=== PATIENT | female | born 1980 | race Caucasian/White ===

== ENCOUNTER 2017-02-24 09:39 | Inpatient (IN) | payer OTHER ==
[2017-02-24 11:35] LABS: ROM Internal QC QC Line Present
[2017-02-24] MEDS ORDERED: Misoprostol TAB* 100 MCG ONE (12:54)
[2017-02-24] MEDS: Misoprostol TAB* 100 MCG PO ONE ×2 (13:00→13:01)
[2017-02-24] MEDS ORDERED: Misoprostol TAB* 100 MCG VAGINAL ONE (17:05)
[2017-02-25 01:55] LABS: Hematocrit 35 % (35-47); Hemoglobin 11.3 g/dl (12.0-16.0); Mean Corpuscular HGB Conc 33 g/dl (31-36); Mean Corpuscular Hemoglobin 27 pg (27-31); Mean Corpuscular Volume 84 fL (80-97); Mean Platelet Volume 10 um3 (7.4-10.4); Red Blood Count 4.14 10^6/ul (4.0-5.4); Red Cell Distribution Width 15 % (10.5-15); White Blood Count 18.9 10^3/ul (3.5-10.8)
[2017-02-25] MEDS ORDERED: Oxytocin in LR* 20 UNITS/1,000 ML BAG IVPB SCH (02:00)
[2017-02-25] MEDS ORDERED: OBEPIDURAL* 250 ML ONE (02:02)
[2017-02-25] MEDS ORDERED: Sodium Citrate/Citric Acid* 15 ML UDC PO PRN (02:33)
[2017-02-25] MEDS ORDERED: Phenylephrine IV* 40 MCG/ML 10 ML SYRINGE IV PUSH PRN (02:33)
[2017-02-25] MEDS ORDERED: EPHEDrine (Pressors)* 50 MG/ML VIAL IV PUSH PRN (02:33)
[2017-02-25] MEDS ORDERED: Famotidine TAB* 20 MG PO PRN (02:33)
[2017-02-25] MEDS ORDERED: OBEPIDURAL* 250 ML EPIDURAL SCH (03:00)
[2017-02-25] MEDS ORDERED: ceFOXitin 2 GM IVPREMIX* 2 GM/50 ML BAG IVPB ONE (09:44)
[2017-02-25] MEDS ORDERED: ceFOXitin 2 GM IVPREMIX* 2 GM/50 ML BAG ONE (09:51)
[2017-02-25] MEDS ORDERED: Sodium Bicarbonate 8.4% SYR* 10 ML SYRINGE ONE (10:00)
[2017-02-25] MEDS ORDERED: fentaNYL* 50 MCG/ML 2 ML VIAL (100 MCG VIAL) ONE (10:08)
[2017-02-25] MEDS ORDERED: OXYTOCIN* 10 UNITS/ML 1 ML VIAL ONE (10:25)
[2017-02-25] MEDS ORDERED: Morphine PF AMP (0.5MG/ML)* 5 MG/10 ML AMP ONE (10:44)
[2017-02-25] MEDS ORDERED: Lidocaine 2% EPI 1:200000 MPF* 20 ML VIAL ONE (10:54)
[2017-02-25] MEDS ORDERED: Glycerin ADULT SUPP PR PRN (11:21)
[2017-02-25] MEDS ORDERED: oxyCODONE/Acetamin 5/325 MG* TAB PO PRN ×2 (11:21→11:22)
[2017-02-25] MEDS ORDERED: Acetaminophen TAB* 325 MG PO PRN (11:21)
[2017-02-25] MEDS ORDERED: Dibucaine 1% 28.35 GM TUBE PR PRN (11:21)
[2017-02-25] MEDS ORDERED: Zolpidem TAB* 5 MG PO PRN (11:21)
[2017-02-25] MEDS ORDERED: Tetan/Diph/Pertus SYR(Tdap)* 0.5 ML SYR(BOOSTRIX) use SYR IM ONE (11:21)
[2017-02-25] MEDS ORDERED: Ibuprofen TAB* 600 MG PO PRN (11:21)
[2017-02-25] MEDS ORDERED: Witch Hazel PAD* JAR TOPICAL PRN (11:21)
[2017-02-25] MEDS ORDERED: Ondansetron INJ* 2 MG/ML VIAL IV PRN (11:22)
[2017-02-25] MEDS ORDERED: Naloxone* 0.4 MG/ML 1 ML VIAL IV PRN (11:22)
[2017-02-25] MEDS ORDERED: diPHENhydraMINE IV* 50 MG/ML 1 ml VIAL (BENADRYL) IV PRN (11:22)
[2017-02-25] MEDS ORDERED: fentaNYL* 50 MCG/ML 2 ML VIAL (100 MCG VIAL) IV PRN (11:26)
[2017-02-25] MEDS: Ketorolac INJ* 30 MG/ML 1 ML VIAL IV PRN ×2 (14:00→20:57)
[2017-02-25] MEDS: Simethicone CHEW TAB* 80 MG PO SCH ×3 (14:01→22:00)
[2017-02-25] MEDS: Docusate CAP* 100 MG PO SCH ×2 (15:00→22:00)
[2017-02-26] MEDS ORDERED: Ibuprofen TAB* 600 MG ONE (04:38)
[2017-02-26] MEDS: Ibuprofen TAB* 600 MG PO PRN ×3 (04:39→17:25)
[2017-02-26 08:37] LABS: Hematocrit 34 % (35-47); Hemoglobin 10.9 g/dl (12.0-16.0); Mean Corpuscular HGB Conc 32 g/dl (31-36); Mean Corpuscular Hemoglobin 27 pg (27-31); Mean Corpuscular Volume 84 fL (80-97); Mean Platelet Volume 9 um3 (7.4-10.4); Red Blood Count 4.05 10^6/ul (4.0-5.4); Red Cell Distribution Width 15 % (10.5-15)
[2017-02-26] MEDS ORDERED: Ferrous Gluconate TAB* 324 MG TAB PO SCH (09:00)
[2017-02-26] MEDS: Docusate CAP* 100 MG PO SCH ×3 (10:30→22:27)
[2017-02-26] MEDS: Simethicone CHEW TAB* 80 MG PO SCH ×4 (10:31→22:27)
[2017-02-27] MEDS: Ibuprofen TAB* 600 MG PO PRN ×4 (01:31→20:07)
--- NOTE | 2017-02-27 02:57 | OP ---
CC: aRdames Harper CNM * DATE OF OPERATION: 02/25/17 - ROOM #[id number]-113 DATE OF : 82 SURGEON: Christian Vallejo MD DAG COATER: Radames Harper CNM ANESTHESIA: Epidural. PRE-OP DIAGNOSIS: Intrauterine at 39 weeks in labor with arrest of descent and nonreassuring monitoring. POST-OP DIAGNOSIS: Intrauterine at 39 weeks in labor with arrest of descent and nonreassuring monitoring along with asynclitic cephalic presentation and meconium stained fluid. OPERATIVE PROCEDURE: Primary low-transverse section with vacuum assistance. ESTIMATED BLOOD LOSS: 600 cc. FLUIDS REPLACED: She received 1300 cc of IV crystalloid fluid. URINE OUTPUT: Clear. FINDINGS: Delivery of a viable male infant over meconium stained fluid with a weight of 7 pounds 15 ounces, Apgars were 9 and 9 and noted to be in an asynclitic presentation within the pelvis. The placenta was grossly intact with a 3-vessel cord noted. The uterus, adnexa, bowel, and bladder were all within normal limits and there were no complications during the procedure. DESCRIPTION OF PROCEDURE: The patient was taken to the operating room where she was identified. She was placed on the operating room table where an epidural anesthetic was obtained without difficulty. She was then placed in the supine position with a leftward tilt, prepped and draped in a normal sterile fashion. A Pfannenstiel skin incision was then made with a knife and carried through to the underlying layer of fascia. The fascia was then nicked in the midline and extended laterally with curved Henderson scissors. The fascia was then grasped superiorly and inferiorly with Babak clamps and dissected off sharply from the rectus muscle. The rectus muscle was then in the midline bluntly. The peritoneum was identified, grasped with pickups, entered sharply with Metzenbaum scissors and extended superiorly and inferiorly sharply. A bladder blade was inserted into the patient's abdomen. A bladder flap was then created using Metzenbaum scissors over which the bladder blade was then reinserted. A low transverse uterine incision was made with a knife, extended laterally with bandage scissors. The 's head was then grasped and delivered with vacuum assistance atraumatically. The rest of the infant's body was then delivered. The cord was clamped and cut and the infant was then handed off to the awaiting claims service adjustor. Cord bloods were obtained. The placenta was then removed manually. The uterus was then exteriorized, cleared off all clot and debris using moist laparotomy sponges. At this point, the uterine incision was closed using 0-Polysorb suture in a running locked fashion with a second imbricating layer of 0-Polysorb suture with good hemostasis noted at the uterine incision site. The uterus was then returned to the patient's abdomen. The abdomen was then irrigated with saline. Irrigation fluid was suctioned, clots within the abdomen were removed with moist laparotomy sponges. All the sponges and instruments were then removed from the patient's abdomen. The peritoneum was then closed using 3-0 Polysorb suture in a running fashion. The fascia was closed using 0 Polysorb suture in a running fashion and the skin was closed with 4-0 Monocryl suture via subcuticular stitch. The patient tolerated the procedure well. Sponge, lap, needle counts were correct x2. She was then transferred to the recovery room area in stable condition. [id number]/[facility] #: [id number] WILBERTO
[2017-02-27] MEDS: Simethicone CHEW TAB* 80 MG PO SCH ×4 (08:27→20:07)
[2017-02-27] MEDS: Docusate CAP* 100 MG PO SCH ×3 (08:28→20:07)
[2017-02-27] MEDS: oxyCODONE/Acetamin 5/325 MG* TAB PO PRN ×3 (08:29→17:21)
[2017-02-28] MEDS: Ibuprofen TAB* 600 MG PO PRN ×2 (05:00→11:59)
[2017-02-28 08:05] VITALS: BP 124/77
[2017-02-28] MEDS: Docusate CAP* 100 MG PO SCH (08:18)
[2017-02-28] MEDS: Simethicone CHEW TAB* 80 MG PO SCH ×2 (08:18→11:59)
--- NOTE | 2017-02-28 10:31 | PTEDU ---
Patient Name: TERRANCE SLAAZAR MARIE KIMMg selected video: Never Ever Shake a Baby to view on 02/28/2017 at 10:29:11 AM [id number]
== END 2017-02-28 12:30 | disposition home or self-care (01) | DRG 766 ==
LOC: MCHOBOUT 09:39 → MCHOB 11:39
PROVIDERS: ADMIT Midwife; ATTEND Midwife
PROC: 10D00Z1 Extraction of Products of Conception, Low, Open Approach (ICD-10-PCS; principal; 2017-02-25 09:59)
DX: O32.4XX0 Maternal care for high head at term, not applicable or unspecified (principal); O77.0 Labor and delivery complicated by meconium in amniotic fluid; O76 Abnormality in fetal heart rate and rhythm complicating labor and delivery; O42.92 Full-term premature rupture of membranes, unspecified as to length of time between rupture and onset of labor; Z3A.39 39 weeks gestation of pregnancy; Z37.0 Single live birth
CPT/HCPCS: 36415; 84112; 85025; 85027; 86850; 86900; 86901; 90715; A9270-GY; J0694; J1885; J2590; J3010; S0191

== ENCOUNTER 2017-03-09 11:00 | Emergency (ER) | payer OTHER ==
[2017-03-09] MEDS ORDERED: NS 0.9% 1000 ML*IV.FLUID IV ONE (12:42)
--- NOTE | 2017-03-09 14:00 | RAD ---
HISTORY: Status post , draining wound COMPARISONS: None TECHNIQUE: Multiple transverse and longitudinal ultrasound images were obtained of the area of clinical abnormality using grayscale and color Doppler imaging FINDINGS: There is a fluid collection deep to the subcutaneous soft tissues that indicates with the site of incision. This measures approximately 7 cm transversely, 0.6 cm in depth, and 0.4 cm in craniocaudal dimension IMPRESSION: THERE IS A FLUID COLLECTION DEEP TO THE SUBCUTANEOUS SOFT TISSUES, TRACKING TRANSVERSELY FOR APPROXIMATELY 7 CM, THAT COMMUNICATES WITH THE SITE OF INCISION
[2017-03-09 14:07] LABS: Hematocrit 41 % (35-47); Hemoglobin 13.4 g/dl (12.0-16.0); Mean Corpuscular HGB Conc 33 g/dl (31-36); Mean Corpuscular Hemoglobin 28 pg (27-31); Mean Corpuscular Volume 84 fL (80-97); Mean Platelet Volume 8 um3 (7.4-10.4); Red Blood Count 4.88 10^6/ul (4.0-5.4); Red Cell Distribution Width 14 % (10.5-15); White Blood Count 7.7 10^3/ul (3.5-10.8)
[2017-03-09 14:10] LABS: Albumin 4.1 g/dL (3.2-5.2); BUN/Creatinine Ratio 24.2 (8-20); C Reactive Protein 18.93 mg/L (< 5.00); Calcium 9.3 mg/dL (8.6-10.3); EGFR African American 140.9 (>60); EGFR Non-African American 109.5 (>60); Globulin 3.8 g/dL (2-4); Total Bilirubin 0.3 mg/dL (0.2-1.0); Total Protein 7.9 g/dL (6.4-8.9)
--- NOTE | 2017-03-09 15:00 | ED ---
Niyah Lindsay Edward, scribed for Liana Kelley MD on 03/09/17 at 1232 . ED Suture/Wound Check - HPI Summary HPI Summary: 36 y/o female presents to the ED c/o pain and drainage at site of incision. The pain is described as a pressure rated 2/10 in severity at triage. The pain at the site of the incision is alleviated with Ibuprofen. She is currently changing her pads once per hour. Associated sx: erythema at the site of incision. Denies fever, diaphoresis. Pt gave on 02/25/17 via C- section. She is breast feeding exclusively. Pt started abx on 03/05/17. G/P/A - //0. Pt is taking cephalexin 500 mg TID. - History Of Current Complaint Chief Complaint: EDGeneral Stated Complaint: incision/POSS INFECTION Time Seen by Provider: 03/09/17 12:27 Hx Obtained From: Patient Onset/Duration: Lasting Weeks - 02/25/17 Surgical Site: Severity: Severe Pain Intensity: 2 Pain Scale Used: 0-10 Numeric Procedure Type: Surgery Date: 02/25/17 - Allergies/Home Medications Allergies/Adverse Reactions: Allergies Allergy/AdvReac Type Severity Reaction Status Date / Time No Known Allergies Allergy Verified 03/09/17 11:19 PMH/Surg Hx/FS Hx/Imm Hx Previously Healthy: No Endocrine/Hematology History: Denies: Hx Diabetes, Hx Thyroid Disease Cardiovascular History: Denies: Hx Hypertension Respiratory History: Denies: Hx Asthma History: Reports: Other Problems/Disorders - Ovarian cyst Denies: Hx Kidney Infection Psychiatric History: Denies: Hx Anxiety, Hx Depression, Other Psychiatric Issues/Disorders - Surgical History Surgery Procedure, Year, and Place: 02/25/17. Laporoscopic oophorectomy Infectious Disease History: Denies: Traveled Outside the [place] in Last 30 Days - Family History Known Family History: Positive: Diabetes - Father Negative: Cardiac Disease - Social History Lives: With Family Alcohol Use: None Hx Substance Use: No Substance Use Type: Reports: None Hx Tobacco Use: No Smoking Status (MU): Never Smoked Tobacco Have You Smoked in the Last Year: No Review of Systems Constitutional: Negative Negative: Fever, Skin Diaphoresis Eyes: Negative ENT: Negative Cardiovascular: Negative Respiratory: Negative Gastrointestinal: Negative Genitourinary: Negative Musculoskeletal: Negative Skin: Other - Pain, drainage and erythema at site of incision Neurological: Negative Psychological: Normal All Other Systems Reviewed And Are Negative: Yes Physical Exam Triage Information Reviewed: Yes Vital Signs On Initial Exam: Initial Vitals Temp Pulse Resp BP Pulse Ox 98.4 F 114 20 123/88 97 03/09/17 11:19 03/09/17 11:19 03/09/17 11:19 03/09/17 11:19 03/09/17 11:19 Vital Signs Reviewed: Yes Appearance: Positive: No Pain Distress, Well-Nourished, Ill-Appearing - Mild Skin: Positive: Warm, Skin Color Reflects Adequate Perfusion, Other - Serosanguinous drainage at site of incision Head/Face: Positive: Normal Head/Face Inspection Eyes: Positive: Conjunctiva Clear ENT: Positive: Normal ENT inspection Neck: Positive: Supple Respiratory/Lung Sounds: Positive: Clear to Auscultation, Breath Sounds Present Cardiovascular: Positive: RRR, Pulses are Symmetrical in both Upper and Lower Extremities, Other - Brisk capillary refill Abdomen Description: Positive: Nontender, No Organomegaly, Soft. Negative: Distended, Guarding, Hepatomegaly, McBurney's Point Tenderness, Peritoneal Signs , Pulsatile Mass, Splenomegaly Bowel Sounds: Positive: Present Musculoskeletal: Positive: Strength/ROM Intact Neurological: Positive: Sensory/Motor Intact, Alert, Oriented to Person Place, Time, Facial Symmetry, Speech Normal Psychiatric: Positive: Normal Diagnostics - Vital Signs Vital Signs Temp Pulse Resp BP Pulse Ox 03/09/17 11:19 98.4 F 114 20 123/88 97 - Laboratory Lab Results: Lab Results 03/09/17 03/09/17 03/09/17 Range/Units 13:30 13:30 13:30 WBC 7.7 (3.5-10.8) 10^3/ul RBC 4.88 (4.0-5.4) 10^6/ul Hgb 13.4 (12.0-16.0) g/dl Hct 41 (35-47) % MCV 84 (80-97) fL MCH 28 (27-31) pg MCHC 33 (31-36) g/dl RDW 14 (10.5-15) % Plt Count 356 (150-450) 10^3/ul MPV 8 (7.4-10.4) um3 Neut % (Auto) 69.7 (38-83) % Lymph % (Auto) 20.7 L (25-47) % Orange % (Auto) 7.3 (1-9) % Eos % (Auto) 1.3 (0-6) % Baso % (Auto) 1.0 (0-2) % Absolute Neuts (auto) 5.4 (1.5-7.7) 10^3/ul Absolute Lymphs (auto) 1.6 (1.0-4.8) 10^3/ul Absolute Monos (auto) 0.6 (0-0.8) 10^3/ul Absolute Eos (auto) 0.1 (0-0.6) 10^3/ul Absolute Basos (auto) 0.1 (0-0.2) 10^3/ul Absolute Nucleated RBC 0 10^3/ul Nucleated RBC % 0 ESR (0-14) mm/Hr INR (Anticoag Therapy) 0.96 (0.89-1.11) APTT 35.8 (26.0-36.3) seconds Sodium 137 (133-145) mmol/L Potassium 4.0 (3.5-5.0) mmol/L Chloride 104 (101-111) mmol/L Carbon Dioxide 26 (22-32) mmol/L Anion Gap 7 (2-11) mmol/L BUN 15 (6-24) mg/dL Creatinine 0.62 (0.51-0.95) mg/dL Est GFR ( Amer) 140.9 (>60) Est GFR (Non-Af Amer) 109.5 (>60) BUN/Creatinine Ratio 24.2 H (8-20) Glucose 70 (70-100) mg/dL Lactic Acid (0.5-2.0) mmol/L Calcium 9.3 (8.6-10.3) mg/dL Total Bilirubin 0.30 (0.2-1.0) mg/dL AST 21 (13-39) U/L ALT 25 (7-52) U/L Alkaline Phosphatase 104 (34-104) U/L C-Reactive Protein 18.93 H (< 5.00) mg/L Total Protein 7.9 (6.4-8.9) g/dL Albumin 4.1 (3.2-5.2) g/dL Globulin 3.8 (2-4) g/dL Albumin/Globulin Ratio 1.1 (1-3) 03/09/17 03/09/17 Range/Units 13:30 13:30 WBC (3.5-10.8) 10^3/ul RBC (4.0-5.4) 10^6/ul Hgb (12.0-16.0) g/dl Hct (35-47) % MCV (80-97) fL MCH (27-31) pg MCHC (31-36) g/dl RDW (10.5-15) % Plt Count (150-450) 10^3/ul MPV (7.4-10.4) um3 Neut % (Auto) (38-83) % Lymph % (Auto) (25-47) % Orange % (Auto) (1-9) % Eos % (Auto) (0-6) % Baso % (Auto) (0-2) % Absolute Neuts (auto) (1.5-7.7) 10^3/ul Absolute Lymphs (auto) (1.0-4.8) 10^3/ul Absolute Monos (auto) (0-0.8) 10^3/ul Absolute Eos (auto) (0-0.6) 10^3/ul Absolute Basos (auto) (0-0.2) 10^3/ul Absolute Nucleated RBC 10^3/ul Nucleated RBC % ESR 31 H (0-14) mm/Hr INR (Anticoag Therapy) (0.89-1.11) APTT (26.0-36.3) seconds Sodium (133-145) mmol/L Potassium (3.5-5.0) mmol/L Chloride (101-111) mmol/L Carbon Dioxide (22-32) mmol/L Anion Gap (2-11) mmol/L BUN (6-24) mg/dL Creatinine (0.51-0.95) mg/dL Est GFR ( Amer) (>60) Est GFR (Non-Af Amer) (>60) BUN/Creatinine Ratio (8-20) Glucose (70-100) mg/dL Lactic Acid 0.5 (0.5-2.0) mmol/L Calcium (8.6-10.3) mg/dL Total Bilirubin (0.2-1.0) mg/dL AST (13-39) U/L ALT (7-52) U/L Alkaline Phosphatase (34-104) U/L C-Reactive Protein (< 5.00) mg/L Total Protein (6.4-8.9) g/dL Albumin (3.2-5.2) g/dL Globulin (2-4) g/dL Albumin/Globulin Ratio (1-3) Result Diagrams: 03/09/17 13:30 03/09/17 13:30 Lab Statement: Any lab studies that have been ordered have been reviewed, and results considered in the medical decision making process. - Ultrasound No standard instances Ultrasound Interpretation: Positive (See Comments) - ABD US - THERE IS A FLUID COLLECTION DEEP TO THE SUBCUTANEOUS SOFT TISSUES, TRACKING TRANSVERSELY FOR APPROXIMATELY 7 CM, THAT COMMUNICATES WITH THE SITE OF INCISION. ED PHYSICIAN AGREEABLE Ultrasound Interpretation Completed By: Radiologist Re-Evaluation - Re-Evaluation 1 Re-Evaluation Time: 15:30 Change: Unchanged Comment: Pt comfortable, advised positive staph aureus, negative MRSA. Dr. Wolf is with pt. 2 Re-Evaluation Time: 17:07 Change: Improved Comment: Re-eval before d/c. Pt tolerated procedure without problem. Course/Dx - Course Assessment/Plan: 36 y/o female presents to the ED c/o pain and drainage at site of incision. The pain is described as a pressure rated 2/10 in severity at triage. The pain at the site of the incision is alleviated with Ibuprofen. She is currently changing her pads once per hour. Associated sx: erythema at the site of incision. Denies fever, diaphoresis. Pt gave on via . She is breast feeding exclusively. Pt started abx on 03/05. G/P/A - 0. Pt is taking cephalexin 500 mg TID. ABD US SHOWS THERE IS A FLUID COLLECTION DEEP TO THE SUBCUTANEOUS SOFT TISSUES, TRACKING TRANSVERSELY FOR APPROXIMATELY 7 CM, THAT COMMUNICATES WITH THE SITE OF INCISION. Spoke with Dr. Wolf @ 14:24, who will come to the ED to see the pt. Dr. Wolf arrived to the ED at 15:45. Dr. Wolf drained the fluid collection without incident. The initial lab report is staph aureus, not MRSA. Pt will continue on po Keflex, as she is not toxic with this abscess, and she will follow up on 03/10/17 in the [employer] TECHNICIAN office. - Differential Diagnoses Differential Diagnoses: Abscess, Cellulitis, Other - seroma - Clinical Impression Provider Diagnoses: Wound abscess - Physician Notifications Discussed Care Of Patient With: Carl Wolf Time Discussed With Above Provider: 14:24 Instructed by Provider To: MD Will See In ED Discharge - Discharge Plan Condition: Stable Disposition: HOME Prescriptions: Cephalexin CAP* [Keflex 500 CAP*] 500 mg PO TID #12 cap Patient Education Materials: Abscess (ED) Referrals: No Primary Care Phys,NOPCP [Primary Care Provider] - Carl Wolf MD [Medical Doctor] - Additional Instructions: Dr. Wolf drained the collection of fluid beneath your scar. The culture has grown a staph organism, but not MRSA. Dr. Wolf wants you to continue the cephalexin 500mg three times a day for 4 days more. We gave you one dose of zosyn (a strong penicillin like antibiotic) while you were in the ER. Your labs were unremarkable. A prescription for four days more of cephalexin was sent to [facility] pharmacy. Be sure to pick that up. You do not need to take an additional dose tonight because we gave you the IV medication. Dr. Wolf wants you to call the office tomorrow to arrange to be seen tomorrow or the next day. Return to the ER if you have new or worsening symptoms. The documentation as recorded by the Niyah madrid Edward accurately reflects the service I personally performed and the decisions made by me, Liana Kelley MD.
[2017-03-09] MEDS ORDERED: Lidocaine 1%* 5 ML VIAL INJ ONE (15:29)
[2017-03-09 17:14] VITALS: BP 119/76
--- NOTE | 2017-03-10 06:45 | CONS ---
ESCALATOR SERVICE MECHANIC CONSULTATION NOTE: DATE OF CONSULT: 03/09/17 - EMERGENCY DEPT. HISTORY OF PRESENT ILLNESS: This patient is a 36-year-old woman approximately 12 days , status post primary section for arrest of descent and non-reassuring heart tracing. A few days after discharge from hospital, the patient reports that she had some redness around the incision and she was seen in the office and prescribed oral Keflex. She initially seemed to have some improvement but then it was progressively worsening until this morning at which time she had significant drainage of serosanguineous and somewhat purulent appearing fluid that soaked about 3 thin panty liner type pads. The patient has not had any fevers or chills or nausea or vomiting. PAST MEDICAL HISTORY: None. PAST SURGICAL HISTORY: Uterine polyp removal, ovarian cystectomy, and section. PAST OB HISTORY: 1, para 1 with . MEDICATIONS: Cephalexin 500 mg p.o. t.i.d. and vitamins. ALLERGIES: No known drug allergies. SOCIAL HISTORY: No tobacco, alcohol, or drugs. Patient is . REVIEW OF SYSTEMS: General: Denies constitutional symptoms. Cardiovascular: Negative. Respiratory: Negative. GI: Negative. : Negative. PHYSICAL EXAM: Vital Signs: Temperature 97.9, pulse 70, blood pressure 119/76. General: Patient is in no acute distress. Appears comfortable and good historian. Abdomen: Incision with modest amount of redness around the mid to right side of the incision with small area that was open and draining small amount on the left side. I and D performed at the bedside. Please see dictation of the procedure, which is separate. DIAGNOSTIC STUDIES/LAB DATA: Laboratory information: White blood cell count 7.7 with 69% neutrophils, hematocrit 41, platelets 356. PCR from wound today returned positive for Staph aureus, negative for MRSA. IMPRESSION: A 36-year-old woman 12 days postoperative from section with wound abscess. Wound incised and drained today with packing placed. PLAN: Patient to continue on cephalexin for 4 more days. She will return to the office tomorrow for wound care and repacking. Consult to the wound clinic has been put in. We discussed wound care at home. No further pain medications are necessary at this time. [id number]/[facility] #: [id number] [facility] HOSPITALMary Carmen
--- NOTE | 2017-03-10 09:58 | PN ---
Progress Note - Progress Note Date of Service: 03/09/17 Note: Wound culture grew s. aureus with negative MRSA Patient placed on Keflex prior to discharge. Awaiting culture to determine sensitivities. Nothing further at this time, Karol Carlisle PA-C
--- NOTE | 2017-03-13 08:20 | OP ---
DATE OF OPERATION: 03/09/17 - EMERGENCY DEPT DATE OF : 82 SURGEON: Carl Wolf MD PRE-OP DIAGNOSIS: 12 days postoperative status post section with wound drainage and evidence of abscess. POST-OP DIAGNOSIS: 12 days postoperative status post section with wound drainage and evidence of abscess. OPERATIVE PROCEDURE: incision and drainage. INDICATIONS: This patient is a 36-year-old woman, 12 days , status post a primary section for arrest of descent. The patient has been taking oral Keflex for about 7 days, but this morning had a fairly large amount of serosanguineous and purulent drainage from the incision, and she presented to the emergency department. Ultrasound was performed and noted an approximately 7 cm wide fluid collection in the subcutaneous tissues. The patient did not have any fevers or chills. The incision did have some redness and induration around it. She was counseled and consented for an incision and drainage. FINDINGS: Approximately 8 cm wide space in the subcutaneous tissues with a small amount of remaining fluid. ESTIMATED BLOOD LOSS: Minimal. MATERIALS TO LAB: None. DESCRIPTION OF PROCEDURE: After obtaining consent, 1% plain lidocaine was injected around the incision at the midline and extending towards the patient's left side where there was the most induration. A 15-blade scalpel was then used to open an approximately 3 cm wide portion of the incision, which required cutting some of the Monocryl suture. A small amount of additional drainage was produced. A sterile swab was then used to probe the subcutaneous tissues and the fascia was noted to be intact. The opening in the subcutaneous area extended on both sides of the opened area. The subcutaneous space was then cleaned and debrided using a Ray-Lary sponge. This was performed again using a small amount of hydrogen peroxide for disinfecting. The patient tolerated this well. Once the wound had been cleaned, the wound was packed with 0.5 inch iodoform ribbon packing. The wound was then covered with a bandage. The patient will return to the office tomorrow for additional wound care, and she will be referred to the wound clinic for additional followup. [id number]/[facility] #: [id number] MTDD
== END 2017-03-09 17:13 | disposition home or self-care (01) ==
LOC: ED 11:00
DX: O86.0 Infection of obstetric surgical wound (principal)
CPT/HCPCS: 36415; 76705; 80053; 83605; 85025; 85610; 85652; 85730; 86140; 87040; 87070; 87077; 87186; 87205; 87640; 87641; 96374; 99282; J2543

== ENCOUNTER 2020-02-03 05:19 | Inpatient (IN) ==
[2020-02-03 06:53] LABS: ABS Basophils 0.1 10^3/ul (0-0.2); ABS Eosinophils 0.1 10^3/ul (0-0.6); ABS Monocytes 0.6 10^3/ul (0-0.8); Eosinophil % 0.6 %; Hematocrit 34 % (35-47); Hemoglobin 11.7 g/dL (12.0-16.0); Mean Corpuscular HGB Conc 34 g/dL (31-36); Mean Corpuscular Hemoglobin 29 pg (27-31); Mean Corpuscular Volume 86 fL (80-97); Mean Platelet Volume 10.5 fL (7.4-10.4); Nucleated Red Blood Cells % 0.1; Platelet Count 189 10^3/uL (150-450); Red Blood Count 3.99 10^6 /uL (3.70-4.87); Red Cell Distribution Width 14 % (10-15); White Blood Count 9.2 10^3/uL (3.5-10.8)
[2020-02-03] MEDS ORDERED: ceFOXitin 2 GM IVPREMIX 2 GM/50 ML BAG IVPB ONE (08:20)
[2020-02-03] MEDS ORDERED: Lactated Ringers 1000 ml BAG 1,000 ML IV ONE (08:21)
[2020-02-03] MEDS ORDERED: ceFOXitin 2 GM IVPREMIX 2 GM/50 ML BAG ONE (08:22)
[2020-02-03] MEDS ORDERED: Morphine PF AMP (0.5MG/ML) 5 MG/10 ML AMP ONE (08:24)
[2020-02-03] MEDS ORDERED: Phenylephrine 40 mcg/mL 10mL (400mcg) SYRINGE ONE ×2 (08:32→09:55)
[2020-02-03] MEDS ORDERED: EPHEDrine (Pressors) 50 MG/ML VIAL ONE (08:32)
[2020-02-03] MEDS ORDERED: Ondansetron 4 mg VIAL 2 MG/ML 2 ml VIAL ONE (08:32)
[2020-02-03] MEDS ORDERED: Oxytocin 10 UNITS/ML 1 ML VIAL ONE (08:33)
[2020-02-03] MEDS ORDERED: Sodium Citrate/Citric Acid LIQ 15 ML UDC PO ONE (08:35)
[2020-02-03] MEDS ORDERED: Sterile Water for Inj 10 ML ONE (08:39)
[2020-02-03] MEDS ORDERED: Lactated Ringers 1000 ml BAG 1,000 ML IV SCH ×2 (09:00→11:00)
[2020-02-03] MEDS ORDERED: Midazolam 2 mg/2 ml VIAL 1 mg/ml 2 ml VIAL (2 mg) ONE (09:56)
[2020-02-03] MEDS ORDERED: Ondansetron 4 mg VIAL 2 MG/ML 2 ml VIAL IV PRN (10:18)
[2020-02-03] MEDS ORDERED: diPHENhydraMINE IV 50 MG/ML 1 ml VIAL (BENADRYL) IV PRN (10:18)
[2020-02-03] MEDS ORDERED: Naloxone 0.4 mg VIAL 0.4 mg/ml 1 ml VIAL IV PRN (10:18)
[2020-02-03] MEDS ORDERED: Witch Hazel PAD JAR TOPICAL PRN (10:52)
[2020-02-03] MEDS ORDERED: Glycerin ADULT 2.4 gm SUPP PR PRN (10:52)
[2020-02-03] MEDS ORDERED: Dibucaine 1% OINT 28.35 GM TUBE PR PRN (10:52)
[2020-02-03] MEDS ORDERED: Oxytocin in LR 20 UNITS/1,000 ML BAG IVPB SCH (11:00)
[2020-02-03 13:59] LABS: Urine Benzodiazepine Screen None Detected (None Detect); Urine Opiates Screen None Detected (None Detect)
[2020-02-04 08:13] LABS: ABS Lymphocytes 1.1 10^3/ul (1.0-4.8); ABS Monocytes 0.6 10^3/ul (0-0.8); Eosinophil % 0.4 %; Hematocrit 24 % (35-47); Hemoglobin 8.4 g/dL (12.0-16.0); Lymphocyte % 12.7 %; Mean Corpuscular HGB Conc 34 g/dL (31-36); Mean Corpuscular Hemoglobin 29 pg (27-31); Mean Corpuscular Volume 85 fL (80-97); Mean Platelet Volume 9.7 fL (7.4-10.4); Platelet Count 110 10^3/uL (150-450); Red Blood Count 2.88 10^6 /uL (3.70-4.87); Red Cell Distribution Width 14 % (10-15); White Blood Count 8.4 10^3/uL (3.5-10.8)
[2020-02-05 08:54] VITALS: BP 96/65
== END 2020-02-05 14:27 | disposition home or self-care (01) | DRG 788 ==
LOC: MCHOBOUT 05:19 → MCHOB 07:50
PROVIDERS: ADMIT Obstetrics & Gynecology; ATTEND Obstetrics & Gynecology